=== PATIENT | female | born 1960 | race Caucasian/White ===

== ENCOUNTER 2017-07-12 19:32 | Emergency (ER) | payer MEDICARE ==
[2017-07-12] MEDS ORDERED: Ketorolac Tromethamine 30 MG/ML VIAL ONE (22:51)
== END 2017-07-12 23:08 | disposition home or self-care (01) ==
LOC: ERS 19:32
DX: M54.5 Low back pain (principal); E78.5 Hyperlipidemia, unspecified; F31.9 Bipolar disorder, unspecified; F41.9 Anxiety disorder, unspecified; F20.9 Schizophrenia, unspecified; F17.210 Nicotine dependence, cigarettes, uncomplicated; I10 Essential (primary) hypertension; Z85.3 Personal history of malignant neoplasm of breast; Z85.41 Personal history of malignant neoplasm of cervix uteri
CPT/HCPCS: 96372; J1885

== ENCOUNTER 2017-07-13 14:59 | Emergency (ER) | payer MEDICARE ==
[2017-07-13 18:10] LABS: Bilirubin Negative (Negative); Blood, Urine Moderate (Negative); Glucose, Urine (Dipstick) Negative (Negative); Ketone, Urine Negative (Negative); Nitrite Positive (Negative); Protein, Urine (Dipstick) Trace mg/dL (Neg-Trace); Urobilinogen 0.2 mg/dL (0.2-1.0)
[2017-07-13 18:12] LABS: Bacteria/HPF 4+ HPF (None Seen)
[2017-07-13 18:18] LABS: Hyaline Casts/LPF 0-3 HYALINE CAST LPF (0-3 Hyaline); RBC/HPF 0-3 HPF (0-3)
[2017-07-13 18:20] LABS: Amphetamine Not Detected (NotDetected); Methadone Not Detected (NotDetected); Methamphetamine Not Detected (NotDetected)
[2017-07-13] MEDS ORDERED: Ketorolac Tromethamine 10 MG TAB PO SCH (18:45)
== END 2017-07-13 19:00 | disposition home or self-care (01) ==
LOC: ERS 14:59
DX: N39.0 Urinary tract infection, site not specified (principal); F19.10 Other psychoactive substance abuse, uncomplicated; I10 Essential (primary) hypertension; E78.5 Hyperlipidemia, unspecified; F31.9 Bipolar disorder, unspecified; F41.9 Anxiety disorder, unspecified; F20.9 Schizophrenia, unspecified; F17.210 Nicotine dependence, cigarettes, uncomplicated
CPT/HCPCS: 80306; 81003; 81015; 99406

== ENCOUNTER 2017-07-14 16:56 | Emergency (ER) | payer MEDICARE ==
[2017-07-14] MEDS ORDERED: Ketorolac Tromethamine 30 MG/ML VIAL ONE (20:07)
== END 2017-07-14 20:40 | disposition home or self-care (01) ==
LOC: ERS 16:56
DX: M54.5 Low back pain (principal); M79.602 Pain in left arm; E78.5 Hyperlipidemia, unspecified; I10 Essential (primary) hypertension; F41.9 Anxiety disorder, unspecified; F31.9 Bipolar disorder, unspecified; F17.210 Nicotine dependence, cigarettes, uncomplicated
CPT/HCPCS: 96372; J1885

== ENCOUNTER 2017-07-15 06:46 | Emergency (ER) | payer MEDICARE | END 2017-07-15 07:03 | disposition home or self-care (01) | LOC: ERS 06:46 | DX: M25.532 Pain in left wrist (principal) | CPT/HCPCS: 99283 ==

== ENCOUNTER 2017-07-15 13:02 | Emergency (ER) | payer MEDICARE | END 2017-07-15 14:20 | disposition left against medical advice (07) | LOC: ERS 13:02 | DX: Z53.21 Procedure and treatment not carried out due to patient leaving prior to being seen by health care provider (principal) ==

== ENCOUNTER 2017-08-01 17:19 | Emergency (ER) | payer MEDICARE | END 2017-08-01 17:55 | disposition home or self-care (01) | LOC: SCSER 17:19 | DX: S62.337D Displaced fracture of neck of fifth metacarpal bone, left hand, subsequent encounter for fracture with routine healing (principal); M54.9 Dorsalgia, unspecified; M25.572 Pain in left ankle and joints of left foot; M25.571 Pain in right ankle and joints of right foot; G89.29 Other chronic pain; F20.9 Schizophrenia, unspecified; F17.210 Nicotine dependence, cigarettes, uncomplicated; F31.9 Bipolar disorder, unspecified; Z85.3 Personal history of malignant neoplasm of breast; Z85.41 Personal history of malignant neoplasm of cervix uteri; Z71.6 Tobacco abuse counseling; V89.2XXD Person injured in unspecified motor-vehicle accident, traffic, subsequent encounter | CPT/HCPCS: 99406 ==

== ENCOUNTER 2017-12-23 19:55 | Emergency (ER) | payer MEDICARE ==
[2017-12-23] MEDS ORDERED: Lorazepam 2 MG/ML VIAL ONE (20:06)
== END 2017-12-23 20:58 | disposition home or self-care (01) ==
LOC: ERS 19:55
DX: F41.9 Anxiety disorder, unspecified (principal); F31.9 Bipolar disorder, unspecified; F20.9 Schizophrenia, unspecified; F17.210 Nicotine dependence, cigarettes, uncomplicated; Z79.899 Other long term (current) drug therapy
CPT/HCPCS: 96372; J2060

== ENCOUNTER 2017-12-24 11:23 | Emergency (ER) | payer MEDICARE ==
[2017-12-24 11:58] LABS: #Eosinphils 0.1 thou/uL (0.0-0.7); #Lymphocytes 2.2 thou/uL (1.20-3.40); #Monocytes 0.4 thou/uL (0.11-0.59); #Neutrophils 4.2 thou/uL (1.40-6.50); %Basophils 0.6 % (0.0-1.0); %Eosinophils 2.1 % (0.0-10.0); %Lymphocytes 31.4 % (21.0-51.0); %Monocytes 5.3 % (0.0-10.0); %Neutrophils 60.7 % (42.0-75.0); Hemoglobin 12.8 g/dL (12.0-16.0); Mean Corpuscular HGB CONC 35.9 g/dL (32.0-36.0); Mean Corpuscular Hemoglobin 34.2 pg (27.0-31.0); Mean Corpuscular Volume 95.3 fl (81.0-99.0); Mean Platelet Volume 7.1 fL (7.4-10.4); Platelet Count 271 thou/uL (130-400); RBC Distribution Width 13.3 % (11.5-14.5); Red Blood Cell (RBC) Count 3.73 mill/uL (4.20-5.40); White Blood Cell (WBC) Count 6.9 thou/uL (4.8-10.8)
[2017-12-24 12:05] LABS: Bilirubin Negative (Negative); Blood, Urine Negative (Negative); Clarity CLEAR (Clear); Glucose, Urine (Dipstick) Negative (Negative); Leukocyte Negative (Negative); Nitrite Negative (Negative); Protein, Urine (Dipstick) Negative (Neg-Trace); Specific Gravity, Urine 1.019 (1.002-1.036); Urobilinogen 0.2 mg/dL (0.2-1.0)
[2017-12-24 12:06] LABS: Pregnancy Test - Urine (BHCG) Negative (Negative); Pregu Control Background? CLEAR/WHITE (CLR/WHITE); Pregu Control Bar Appear? YES (CONTROL BAR); Specific Gravity 1.019 (1.002-1.036)
[2017-12-24] MEDS ORDERED: Lorazepam 1 MG TAB ONE (12:11)
[2017-12-24 12:16] LABS: ALT (SGPT) 12 U/L (8-55); AST (SGOT) 11 U/L (5-34); Acetaminophen Less than 6.0 mcg/mL (10.0-30.0); Albumin 4.3 g/dL (3.5-5.0); Alcohol Less than 10 mg/dL (Less than 10); Alkaline Phosphatase 76 U/L (40-150); Anion Gap 14 mmol/L (10-20); BUN (Urea Nitrogen) 15 mg/dL (9.8-20.1); Bilirubin, Total 0.4 mg/dL (0.2-1.2); CK (CPK) 173 U/L (29-168); Calc. Creatinine Clearance 0 mL/min (70-130); Calcium 9.2 mg/dL (7.8-10.44); Carbon Dioxide 21 mmol/L (22-29); Chloride 109 mmol/L (98-107); Estimated GFR-MDRD 85; Glucose 117 mg/dL (70-105); Potassium 3.9 mmol/L (3.5-5.1); Protein, Total 7.3 g/dL (6.0-8.3); Salicylate Less than 8.0 mg/dL (15.0-30.0); Sodium 140 mmol/L (136-145)
[2017-12-24 12:19] LABS: Amphetamine Not Detected (NotDetected); Barbiturates Screen Not Detected (NotDetected); Benzodiazepine Screen Detected (NotDetected); Cocaine Metabolite Screen Not Detected (NotDetected); Medtox Control Line Valid? VALID (VALID); Medtox Reader # READER 4; Methadone Not Detected (NotDetected); Methamphetamine Not Detected (NotDetected); Opiate Screen Not Detected (NotDetected); Oxycodone Screen Not Detected (NotDetected); Phencyclidine (PCP) Not Detected (NotDetected); THC/Cannabinoid Screen Not Detected (NotDetected); Tricyclic Screen Detected (NotDetected)
[2017-12-24] MEDS ORDERED: Nicotine 14 MG PATCH TOP SCH (12:30)
[2017-12-24] MEDS ORDERED: hydrOXYzine Pamoate 25 mg Capsule ONE ×2 (13:56→23:51)
[2017-12-25] MEDS ORDERED: hydrOXYzine 25 MG TAB ONE (08:19)
[2017-12-25] MEDS ORDERED: hydrOXYzine Pamoate 25 mg Capsule ONE ×3 (13:18→19:44)
[2017-12-25] MEDS ORDERED: Nicotine 14 MG PATCH TOP SCH (14:30)
[2017-12-25] MEDS ORDERED: risperiDONE 1 MG TAB ONE (19:44)
[2017-12-25] MEDS ORDERED: traZODone HCl 50 MG TAB ONE (22:51)
[2017-12-26] MEDS ORDERED: hydrOXYzine Pamoate 25 mg Capsule ONE ×4 (07:12→21:35)
[2017-12-26] MEDS ORDERED: risperiDONE 1 MG TAB ONE (07:14)
[2017-12-27] MEDS ORDERED: Ondansetron ODT 4 MG TAB ONE ×2 (02:19→15:00)
[2017-12-27] MEDS ORDERED: hydrOXYzine Pamoate 25 mg Capsule ONE (03:37)
[2017-12-27] MEDS ORDERED: Lorazepam 1 MG TAB ONE (09:34)
--- NOTE | 2017-12-30 14:53 | EKG ---
Test Reason : Blood Pressure : / mmHG Vent. Rate : 080 BPM Atrial Rate : 080 BPM P-R Int : 150 ms QRS Dur : 074 ms QT Int : 388 ms P-R-T Axes : 088 022 093 degrees QTc Int : 447 ms Normal sinus rhythm Low voltage QRS Abnormal QRS-T angle, consider primary T wave abnormality Abnormal ECG Confirmed by AR HOANG, DAMIEN ([id number]), food editor LATRICE LOPEZ ([id number]) on 12/30/2017 2:52:24 PM Referred By: Confirmed By:DAMIEN JOYNER MD
== END 2017-12-27 15:51 ==
LOC: ERS 11:23
DX: R45.851 Suicidal ideations (principal); F31.9 Bipolar disorder, unspecified; F20.9 Schizophrenia, unspecified; F17.210 Nicotine dependence, cigarettes, uncomplicated; Z79.899 Other long term (current) drug therapy
CPT/HCPCS: 36415; 80053; 80306; 80307; 81003; 81025; 82550; 84443; 85025; 93005; Q0162; Q0177

== ENCOUNTER 2018-02-04 19:40 | Emergency (ER) | payer MEDICARE ==
[2018-02-04 20:15] LABS: Bilirubin Negative (Negative); Blood, Urine Negative (Negative); Clarity CLOUDY (Clear); Glucose, Urine (Dipstick) Negative (Negative); Leukocyte Moderate (Negative); Nitrite Negative (Negative); Protein, Urine (Dipstick) Negative (Neg-Trace); Specific Gravity, Urine 1.017 (1.002-1.036); Urobilinogen 0.2 mg/dL (0.2-1.0); pH, Urine 7.5 (5.0-9.0)
[2018-02-04 20:17] LABS: Hyaline Casts/LPF 0-3 HYALINE CAST LPF (0-3 Hyaline); Pathc Cast-AUWi Flag 0.72 (0-2.49); Pregnancy Test - Urine (BHCG) Negative (Negative); Pregu Control Background? CLEAR/WHITE (CLR/WHITE); Pregu Control Bar Appear? YES (CONTROL BAR); Specific Gravity 1.017 (1.002-1.036)
[2018-02-04 20:24] LABS: Amphetamine Not Detected (NotDetected); Barbiturates Screen Not Detected (NotDetected); Benzodiazepine Screen Detected (NotDetected); Cocaine Metabolite Screen Not Detected (NotDetected); Medtox Control Line Valid? VALID (VALID); Medtox Reader # READER 4; Methadone Not Detected (NotDetected); Methamphetamine Not Detected (NotDetected); Opiate Screen Not Detected (NotDetected); Oxycodone Screen Not Detected (NotDetected); Phencyclidine (PCP) Not Detected (NotDetected); THC/Cannabinoid Screen Not Detected (NotDetected); Tricyclic Screen Detected (NotDetected)
[2018-02-04 20:25] LABS: #Eosinphils 0.1 thou/uL (0.0-0.7); #Lymphocytes 2.5 thou/uL (1.20-3.40); #Monocytes 0.6 thou/uL (0.11-0.59); #Neutrophils 3.6 thou/uL (1.40-6.50); %Basophils 0.3 % (0.0-1.0); %Eosinophils 1.3 % (0.0-10.0); %Lymphocytes 36.7 % (21.0-51.0); %Monocytes 9.2 % (0.0-10.0); %Neutrophils 52.5 % (42.0-75.0); Mean Corpuscular HGB CONC 35.9 g/dL (32.0-36.0); Mean Corpuscular Hemoglobin 33.3 pg (27.0-31.0); Mean Corpuscular Volume 92.6 fL (78.0-98.0); Mean Platelet Volume 7.5 fL (7.4-10.4); Platelet Count 256 thou/uL (130-400); RBC Distribution Width 12.6 % (11.5-14.5); Red Blood Cell (RBC) Count 3.32 mill/uL (4.20-5.40); White Blood Cell (WBC) Count 6.8 thou/uL (4.8-10.8)
[2018-02-04 20:26] LABS: Bacteria/HPF 1+ HPF (None Seen); RBC/HPF 0-3 HPF (0-3)
[2018-02-04 20:45] LABS: ALT (SGPT) 9 U/L (8-55); AST (SGOT) 11 U/L (5-34); Albumin 3.9 g/dL (3.5-5.0); Alkaline Phosphatase 67 U/L (40-150); Anion Gap 16 mmol/L (10-20); BUN (Urea Nitrogen) 11 mg/dL (9.8-20.1); Bilirubin, Total Less than 0.2 mg/dL (0.2-1.2); Calc. Creatinine Clearance 0 mL/min (70-130); Calcium 9.2 mg/dL (7.8-10.44); Carbon Dioxide 20 mmol/L (22-29); Chloride 111 mmol/L (98-107); Estimated GFR-MDRD 74; Globulin 2.8 g/dL (2.4-3.5); Glucose 100 mg/dL (70-105); Protein, Total 6.7 g/dL (6.0-8.3); Sodium 143 mmol/L (136-145)
[2018-02-04] MEDS ORDERED: Nicotine 14 MG PATCH TOP SCH (21:00)
[2018-02-04] MEDS ORDERED: Lorazepam 1 MG TAB ONE (23:37)
[2018-02-04] MEDS ORDERED: traMADol HCl 50 MG TAB ONE (23:37)
== END 2018-02-05 00:30 | disposition home or self-care (01) ==
LOC: ERS 19:40
DX: F39 Unspecified mood [affective] disorder (principal); F31.9 Bipolar disorder, unspecified; F20.9 Schizophrenia, unspecified; F17.210 Nicotine dependence, cigarettes, uncomplicated; Z79.899 Other long term (current) drug therapy
CPT/HCPCS: 36415; 80053; 80306; 81003; 81015; 81025; 84443; 85025; 99283

== ENCOUNTER 2018-02-08 16:53 | Emergency (ER) | payer MEDICARE ==
[2018-02-08] MEDS ORDERED: traMADol HCl 50 MG TAB ONE ×2 (18:44→18:47)
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
== END 2018-02-08 18:48 | disposition home or self-care (01) ==
LOC: ERS 16:53
DX: S09.90XA Unspecified injury of head, initial encounter (principal); S00.33XA Contusion of nose, initial encounter; Z71.6 Tobacco abuse counseling; F31.9 Bipolar disorder, unspecified; F20.9 Schizophrenia, unspecified; F41.9 Anxiety disorder, unspecified; F17.210 Nicotine dependence, cigarettes, uncomplicated; Y04.0XXA Assault by unarmed brawl or fight, initial encounter
CPT/HCPCS: 70486; 99406

== ENCOUNTER 2018-02-13 15:15 | Emergency (ER) | payer MEDICARE ==
[2018-02-13] MEDS ORDERED: traMADol HCl 50 MG TAB ONE (16:37)
== END 2018-02-13 17:54 | disposition home or self-care (01) ==
LOC: ERS 15:15
DX: G89.29 Other chronic pain (principal); F31.9 Bipolar disorder, unspecified; F41.9 Anxiety disorder, unspecified; F17.210 Nicotine dependence, cigarettes, uncomplicated
CPT/HCPCS: 99283

== ENCOUNTER 2018-02-14 10:40 | Emergency (ER) | payer MEDICARE | END 2018-02-14 12:26 | disposition home or self-care (01) | LOC: ERS 10:40 | DX: G89.29 Other chronic pain (principal); M25.512 Pain in left shoulder; Z71.6 Tobacco abuse counseling; F31.9 Bipolar disorder, unspecified; F20.9 Schizophrenia, unspecified; F41.9 Anxiety disorder, unspecified; F17.210 Nicotine dependence, cigarettes, uncomplicated; Z79.899 Other long term (current) drug therapy | CPT/HCPCS: 99406 ==

== ENCOUNTER 2018-02-27 07:09 | Emergency (ER) | payer MEDICARE ==
[2018-02-27 08:56] LABS: #Eosinphils 0.1 thou/uL (0.0-0.7); #Lymphocytes 2.3 thou/uL (1.20-3.40); #Monocytes 0.5 thou/uL (0.11-0.59); #Neutrophils 5.1 thou/uL (1.40-6.50); %Basophils 0.4 % (0.0-1.0); %Eosinophils 1.8 % (0.0-10.0); %Neutrophils 62.8 % (42.0-75.0); ALT (SGPT) 9 U/L (8-55); AST (SGOT) 11 U/L (5-34); Acetaminophen Less than 6.0 mcg/mL (10.0-30.0); Albumin 4.5 g/dL (3.5-5.0); Alcohol Less than 10 mg/dL (Less than 10); Alkaline Phosphatase 81 U/L (40-150); Anion Gap 15 mmol/L (10-20); BUN (Urea Nitrogen) 12 mg/dL (9.8-20.1); Bilirubin, Total 0.2 mg/dL (0.2-1.2); Calc. Creatinine Clearance 0 mL/min (70-130); Calcium 9.5 mg/dL (7.8-10.44); Carbon Dioxide 21 mmol/L (22-29); Chloride 108 mmol/L (98-107); Estimated GFR-MDRD 87; Globulin 3.1 g/dL (2.4-3.5); Glucose 91 mg/dL (70-105); Hemoglobin 13.5 g/dL (12.0-16.0); Mean Corpuscular HGB CONC 34.3 g/dL (32.0-36.0); Mean Corpuscular Hemoglobin 31.7 pg (27.0-31.0); Mean Corpuscular Volume 92.4 fL (78.0-98.0); Mean Platelet Volume 7.8 fL (7.4-10.4); Platelet Count 273 thou/uL (130-400); Potassium 4.4 mmol/L (3.5-5.1); Protein, Total 7.6 g/dL (6.0-8.3); RBC Distribution Width 12.9 % (11.5-14.5); Red Blood Cell (RBC) Count 4.26 mill/uL (4.20-5.40); Salicylate Less than 8.0 mg/dL (15.0-30.0); Sodium 140 mmol/L (136-145)
[2018-02-27 08:59] LABS: CKMB 1.4 ng/mL (0-6.6); Troponin I Less than 0.010 ng/mL (< 0.028)
[2018-02-27 09:01] LABS: Bilirubin Negative (Negative); Blood, Urine Trace (Negative); Clarity CLOUDY (Clear); Glucose, Urine (Dipstick) Negative (Negative); Leukocyte Negative (Negative); Nitrite Negative (Negative); Protein, Urine (Dipstick) Negative (Neg-Trace); Specific Gravity, Urine 1.015 (1.002-1.036); Urobilinogen 0.2 mg/dL (0.2-1.0)
[2018-02-27 09:02] LABS: Bacteria/HPF 1+ HPF (None Seen); Hyaline Casts/LPF 0-3 HYALINE CAST LPF (0-3 Hyaline); Pathc Cast-AUWi Flag 0.72 (0-2.49)
== END 2018-02-27 10:03 | disposition home or self-care (01) ==
LOC: ERS 07:09
DX: F41.9 Anxiety disorder, unspecified (principal); N39.0 Urinary tract infection, site not specified; F31.9 Bipolar disorder, unspecified; F20.9 Schizophrenia, unspecified; F17.210 Nicotine dependence, cigarettes, uncomplicated
CPT/HCPCS: 36415; 80053; 80164; 80307; 81003; 81015; 82553; 84443; 84484; 85025; 93005

== ENCOUNTER 2018-06-08 17:39 | Emergency (ER) | payer MEDICARE ==
[2018-06-08 19:01] LABS: #Eosinphils 0.1 thou/uL (0.0-0.7); #Lymphocytes 1.5 thou/uL (1.20-3.40); #Monocytes 0.6 thou/uL (0.11-0.59); #Neutrophils 4.2 thou/uL (1.40-6.50); %Basophils 0.7 % (0.0-1.0); %Eosinophils 1.3 % (0.0-10.0); %Lymphocytes 23.5 % (21.0-51.0); %Monocytes 8.5 % (0.0-10.0); Hemoglobin 12.1 g/dL (12.0-16.0); Mean Corpuscular HGB CONC 33.5 g/dL (32.0-36.0); Mean Corpuscular Hemoglobin 31.2 pg (27.0-31.0); Mean Corpuscular Volume 93.3 fL (78.0-98.0); Mean Platelet Volume 8.6 fL (7.4-10.4); Platelet Count 230 thou/uL (130-400); Red Blood Cell (RBC) Count 3.87 mill/uL (4.20-5.40); White Blood Cell (WBC) Count 6.4 thou/uL (4.8-10.8)
[2018-06-08 19:22] LABS: ALT (SGPT) 13 U/L (8-55); AST (SGOT) 15 U/L (5-34); Acetaminophen Less than 6.0 mcg/mL (10.0-30.0); Alcohol Less than 10 mg/dL (Less than 10); Alkaline Phosphatase 55 U/L (40-150); Anion Gap 16 mmol/L (10-20); BUN (Urea Nitrogen) 20 mg/dL (9.8-20.1); Bilirubin, Total 0.2 mg/dL (0.2-1.2); Calc. Creatinine Clearance 0 mL/min (70-130); Calcium 9.2 mg/dL (7.8-10.44); Carbon Dioxide 21 mmol/L (22-29); Chloride 111 mmol/L (98-107); Estimated GFR-MDRD Greater than 90; Globulin 3.2 g/dL (2.4-3.5); Glucose 101 mg/dL (70-105); Potassium 4.5 mmol/L (3.5-5.1); Protein, Total 7.2 g/dL (6.0-8.3); Salicylate Less than 8.0 mg/dL (15.0-30.0); Sodium 143 mmol/L (136-145)
[2018-06-08 19:23] LABS: Alcohol Less than 10 mg/dL (Less than 10); CK (CPK) 186 U/L (29-168)
[2018-06-08 21:30] LABS: Amphetamine Not Detected (NotDetected); Barbiturates Screen Not Detected (NotDetected); Benzodiazepine Screen Not Detected (NotDetected); Cocaine Metabolite Screen Not Detected (NotDetected); Medtox Control Line Valid? VALID (VALID); Medtox Reader # READER 1; Methadone Not Detected (NotDetected); Methamphetamine Not Detected (NotDetected); Opiate Screen Not Detected (NotDetected); Oxycodone Screen Not Detected (NotDetected); Phencyclidine (PCP) Not Detected (NotDetected); THC/Cannabinoid Screen Not Detected (NotDetected); Tricyclic Screen Not Detected (NotDetected)
[2018-06-08] MEDS ORDERED: Lorazepam 1 MG TAB ONE (21:51)
[2018-06-08] MEDS ORDERED: busPIRone HCl 5 MG TAB PO SCH (22:45)
[2018-06-08] MEDS ORDERED: OLANZapine 5 MG TAB PO SCH (22:45)
[2018-06-10] MEDS ORDERED: busPIRone HCl 5 MG TAB PO SCH ×2 (09:45→19:15)
[2018-06-10] MEDS ORDERED: OLANZapine 5 MG TAB PO SCH (19:15)
[2018-06-11] MEDS ORDERED: busPIRone HCl 5 MG TAB PO SCH ×3 (08:45→21:00)
[2018-06-11] MEDS ORDERED: OLANZapine 5 MG TAB PO SCH (08:45)
[2018-06-11] MEDS ORDERED: traZODone HCl 50 MG TAB PO PRN (22:15)
[2018-06-12] MEDS ORDERED: busPIRone HCl 5 MG TAB PO SCH (09:00)
[2018-06-12] MEDS ORDERED: OLANZapine 5 MG TAB PO SCH (21:00)
== END 2018-06-14 12:40 | disposition home or self-care (01) ==
LOC: ERS 17:39
DX: R45.851 Suicidal ideations (principal); F31.9 Bipolar disorder, unspecified; F41.9 Anxiety disorder, unspecified; F17.210 Nicotine dependence, cigarettes, uncomplicated; Z79.899 Other long term (current) drug therapy
CPT/HCPCS: 36415; 80053; 80306; 80307; 82550; 84443; 85025; 93005; 94760

== ENCOUNTER 2018-06-18 15:02 | Emergency (ER) | payer MEDICARE ==
[2018-06-18 15:32] LABS: #Basophils 0.1 thou/uL (0.0-0.2); #Eosinphils 0.1 thou/uL (0.0-0.7); #Lymphocytes 2.1 thou/uL (1.20-3.40); #Monocytes 0.5 thou/uL (0.11-0.59); #Neutrophils 4.5 thou/uL (1.40-6.50); %Basophils 1.1 % (0.0-1.0); %Eosinophils 1.7 % (0.0-10.0); %Monocytes 6.6 % (0.0-10.0); %Neutrophils 61.5 % (42.0-75.0); Hemoglobin 13.3 g/dL (12.0-16.0); Mean Corpuscular HGB CONC 35.3 g/dL (32.0-36.0); Mean Corpuscular Hemoglobin 32.1 pg (27.0-31.0); Mean Corpuscular Volume 90.9 fL (78.0-98.0); Mean Platelet Volume 8.8 fL (7.4-10.4); Platelet Count 251 thou/uL (130-400); RBC Distribution Width 14.4 % (11.5-14.5); Red Blood Cell (RBC) Count 4.15 mill/uL (4.20-5.40); White Blood Cell (WBC) Count 7.3 thou/uL (4.8-10.8)
[2018-06-18 15:54] LABS: Acetaminophen Less than 6.0 mcg/mL (10.0-30.0); Alcohol Less than 10 mg/dL (Less than 10); Salicylate Less than 8.0 mg/dL (15.0-30.0)
[2018-06-18 15:55] LABS: ALT (SGPT) 35 U/L (8-55); AST (SGOT) 30 U/L (5-34); Albumin 4.3 g/dL (3.5-5.0); Alkaline Phosphatase 68 U/L (40-150); Anion Gap 16 mmol/L (10-20); BUN (Urea Nitrogen) 13 mg/dL (9.8-20.1); Bilirubin, Total 0.3 mg/dL (0.2-1.2); Calc. Creatinine Clearance 0 mL/min (70-130); Calcium 9.6 mg/dL (7.8-10.44); Carbon Dioxide 20 mmol/L (22-29); Chloride 107 mmol/L (98-107); Estimated GFR-MDRD 88; Globulin 3.4 g/dL (2.4-3.5); Glucose 94 mg/dL (70-105); Protein, Total 7.7 g/dL (6.0-8.3); Sodium 139 mmol/L (136-145)
[2018-06-18] MEDS ORDERED: Diazepam 5 MG TAB ONE (15:57)
[2018-06-18 16:53] LABS: Bilirubin Negative (Negative); Blood, Urine Trace (Negative); Clarity CLEAR (Clear); Glucose, Urine (Dipstick) Negative (Negative); Leukocyte Negative (Negative); Nitrite Negative (Negative); Protein, Urine (Dipstick) Negative (Neg-Trace); Specific Gravity, Urine 1.022 (1.002-1.036); Urobilinogen 0.2 mg/dL (0.2-1.0)
[2018-06-18 16:56] LABS: Bacteria/HPF None Seen HPF (None Seen); RBC/HPF 0-3 HPF (0-3); Squamous Epithelial 0-3 HPF (0-3)
[2018-06-18 17:00] LABS: Hyaline Casts/LPF 0-3 HYALINE CAST LPF (0-3 Hyaline); Manual Microscopic Reviewed? No Path Casts Seen
[2018-06-18 17:04] LABS: Amphetamine Not Detected (NotDetected); Barbiturates Screen Not Detected (NotDetected); Benzodiazepine Screen Detected (NotDetected); Cocaine Metabolite Screen Not Detected (NotDetected); Medtox Control Line Valid? VALID (VALID); Medtox Reader # READER 1; Methadone Not Detected (NotDetected); Methamphetamine Not Detected (NotDetected); Opiate Screen Not Detected (NotDetected); Oxycodone Screen Not Detected (NotDetected); Phencyclidine (PCP) Not Detected (NotDetected); THC/Cannabinoid Screen Not Detected (NotDetected); Tricyclic Screen Not Detected (NotDetected)
[2018-06-18] MEDS ORDERED: Cephalexin 250 MG CAP ONE (17:37)
[2018-06-19] MEDS ORDERED: hydrOXYzine Pamoate 25 mg Capsule PO PRN (07:45)
[2018-06-19] MEDS ORDERED: Ziprasidone 20 MG CAP PO SCH (07:45)
[2018-06-19] MEDS ORDERED: Nicotine 14 MG PATCH TD SCH (07:45)
[2018-06-19] MEDS ORDERED: traZODone HCl 50 MG TAB PO PRN (07:51)
[2018-06-19] MEDS ORDERED: risperiDONE 1 MG TAB PO SCH (08:00)
[2018-06-19] MEDS ORDERED: OLANZapine 5 MG TAB PO SCH (08:00)
[2018-06-19] MEDS ORDERED: Cephalexin 250 MG CAP ONE ×3 (08:22→21:12)
[2018-06-19] MEDS ORDERED: busPIRone HCl 10 MG TAB PO SCH (09:00)
[2018-06-19] MEDS ORDERED: Lorazepam 2 MG/ML VIAL ONE (13:38)
[2018-06-19] MEDS ORDERED: Lorazepam 1 MG TAB ONE (13:39)
[2018-06-19] MEDS ORDERED: Cephalexin 250 MG CAP PO SCH (15:00)
[2018-06-19] MEDS ORDERED: busPIRone HCl 5 MG TAB PO SCH (21:00)
[2018-06-19] MEDS ORDERED: Divalproex Sodium DR 500 MG TAB PO SCH (21:00)
[2018-06-23] MEDS ORDERED: hydrOXYzine Pamoate 25 mg Capsule PO SCH (22:15)
--- NOTE | 2018-06-24 16:17 | EKG ---
Test Reason : ER INDICATION Blood Pressure : / mmHG Vent. Rate : 063 BPM Atrial Rate : 063 BPM P-R Int : 144 ms QRS Dur : 082 ms QT Int : 396 ms P-R-T Axes : 045 -17 073 degrees QTc Int : 405 ms Poor data quality, interpretation may be adversely affected Normal sinus rhythm Normal ECG Confirmed by KEARA HUERTA ([id number]), newspaper photo editor LATRICE LOPEZ ([id number]) on 06/24/2018 4:17:42 PM Referred By: Confirmed By:KEARA HUERTA
== END 2018-06-25 01:22 ==
LOC: ERS 15:02
DX: F32.9 Major depressive disorder, single episode, unspecified (principal); F20.9 Schizophrenia, unspecified; Z79.899 Other long term (current) drug therapy
CPT/HCPCS: 36415; 80053; 80306; 80307; 81003; 81015; 84443; 85025; 87086; 93005; J2060; Q0177

== ENCOUNTER 2019-05-01 15:47 | Emergency (ER) | payer MEDICARE ==
[2019-05-01 17:05] LABS: #Basophils 0.1 thou/uL (0.0-0.2); #Eosinphils 0.2 thou/uL (0.0-0.7); #Lymphocytes 3.1 thou/uL (1.20-3.40); #Monocytes 0.7 thou/uL (0.11-0.59); #Neutrophils 4.3 thou/uL (1.40-6.50); %Basophils 0.6 % (0.0-1.0); %Eosinophils 2.9 % (0.0-10.0); %Lymphocytes 36.7 % (21.0-51.0); %Monocytes 8.7 % (0.0-10.0); %Neutrophils 51.2 % (42.0-75.0); Hemoglobin 12.3 g/dL (12.0-16.0); Mean Corpuscular HGB CONC 35.1 g/dL (32.0-36.0); Mean Corpuscular Hemoglobin 31.6 pg (27.0-31.0); Mean Corpuscular Volume 90.1 fL (78.0-98.0); Mean Platelet Volume 8.6 fL (7.4-10.4); Platelet Count 254 thou/uL (130-400); RBC Distribution Width 14.4 % (11.5-14.5); Red Blood Cell (RBC) Count 3.89 mill/uL (4.20-5.40); White Blood Cell (WBC) Count 8.3 thou/uL (4.8-10.8)
[2019-05-01 17:17] LABS: Bilirubin Negative (Negative); Blood, Urine Moderate (Negative); Glucose, Urine (Dipstick) Negative (Negative); Leukocyte Small (Negative); Nitrite Negative (Negative); Protein, Urine (Dipstick) Negative (Neg-Trace); Urobilinogen 0.2 mg/dL (Less than 2)
[2019-05-01 17:20] LABS: Clarity Hazy (Clear)
[2019-05-01 17:21] LABS: Pregnancy Test - Urine (BHCG) Negative (Negative); Pregu Control Background? CLEAR/WHITE (CLR/WHITE); Pregu Control Bar Appear? YES (CONTROL BAR); Specific Gravity 1.025 (1.002-1.036)
[2019-05-01 17:27] LABS: Amphetamine Not Detected (NotDetected); Barbiturates Screen Not Detected (NotDetected); Benzodiazepine Screen Not Detected (NotDetected); Cocaine Metabolite Screen Not Detected (NotDetected); Medtox Reader # READER 4; Methadone Not Detected (NotDetected); Methamphetamine Not Detected (NotDetected); Opiate Screen Not Detected (NotDetected); Phencyclidine (PCP) Not Detected (NotDetected); THC/Cannabinoid Screen Not Detected (NotDetected); Tricyclic Screen Not Detected (NotDetected)
[2019-05-01 17:28] LABS: Medtox Control Line Valid? VALID (VALID); Oxycodone Screen Not Detected (NotDetected)
[2019-05-01 17:30] LABS: Acetaminophen Less than 6.0 mcg/mL (10.0-30.0); Alcohol Less than 10 mg/dL (Less than 10); Salicylate Less than 8.0 mg/dL (15.0-30.0)
[2019-05-01 17:32] LABS: Bacteria/HPF 1+ HPF (None Seen)
[2019-05-01 17:33] LABS: ALT (SGPT) 11 U/L (8-55); AST (SGOT) 10 U/L (5-34); Albumin 4.2 g/dL (3.5-5.0); Alkaline Phosphatase 74 U/L (40-110); Anion Gap 14 mmol/L (10-20); BUN (Urea Nitrogen) 22 mg/dL (9.8-20.1); Bilirubin, Total 0.2 mg/dL (0.2-1.2); CK (CPK) 74 U/L (29-168); Calc. Creatinine Clearance 0 mL/min (70-130); Calcium 9.6 mg/dL (7.8-10.44); Carbon Dioxide 23 mmol/L (22-29); Chloride 108 mmol/L (98-107); Estimated GFR-MDRD 85; Globulin 2.9 g/dL (2.4-3.5); Glucose 95 mg/dL (70-105); Lipase 40 U/L (8-78); Potassium 4.4 mmol/L (3.5-5.1); Protein, Total 7.1 g/dL (6.0-8.3); Sodium 141 mmol/L (136-145)
== END 2019-05-01 20:08 | disposition home or self-care (01) ==
LOC: ERS 15:47
DX: F31.9 Bipolar disorder, unspecified (principal); F20.9 Schizophrenia, unspecified; F17.210 Nicotine dependence, cigarettes, uncomplicated; Z79.899 Other long term (current) drug therapy
CPT/HCPCS: 36415; 80053; 80306; 80307; 81003; 81015; 81025; 82550; 83690; 84443; 85025; 99285

== ENCOUNTER 2019-05-04 19:50 | Emergency (ER) | payer MEDICARE ==
[2019-05-04] MEDS ORDERED: traMADol HCl 50 MG TAB ONE (22:25)
[2019-05-04] MEDS ORDERED: Ibuprofen 200 MG TAB ONE (22:26)
[2019-05-04 22:38] LABS: #Basophils 0.1 thou/uL (0.0-0.2); #Eosinphils 0.4 thou/uL (0.0-0.7); #Monocytes 0.7 thou/uL (0.11-0.59); #Neutrophils 5.1 thou/uL (1.40-6.50); %Basophils 0.5 % (0.0-1.0); %Eosinophils 4.1 % (0.0-10.0); %Lymphocytes 32.5 % (21.0-51.0); %Monocytes 7.3 % (0.0-10.0); %Neutrophils 55.7 % (42.0-75.0); Hemoglobin 12.2 g/dL (12.0-16.0); Mean Corpuscular Hemoglobin 31.2 pg (27.0-31.0); Mean Corpuscular Volume 86.7 fL (78.0-98.0); Mean Platelet Volume 8.6 fL (7.4-10.4); Platelet Count 262 thou/uL (130-400); RBC Distribution Width 14.3 % (11.5-14.5); Red Blood Cell (RBC) Count 3.92 mill/uL (4.20-5.40); White Blood Cell (WBC) Count 9.2 thou/uL (4.8-10.8)
[2019-05-04 22:45] LABS: BHCG - Serum Negative (NEGATIVE); Pregs Control Background? CLEAR/WHITE (CLR/WHITE); Pregs Control Bar Appear? YES (CONTROL BAR)
[2019-05-04 22:49] LABS: ALT (SGPT) 14 U/L (8-55); AST (SGOT) 12 U/L (5-34); Acetaminophen Less than 6.0 mcg/mL (10.0-30.0); Albumin 3.9 g/dL (3.5-5.0); Alcohol Less than 10 mg/dL (Less than 10); Alkaline Phosphatase 70 U/L (40-110); Anion Gap 14 mmol/L (10-20); BUN (Urea Nitrogen) 23 mg/dL (9.8-20.1); Bilirubin, Total Less than 0.2 mg/dL (0.2-1.2); CK (CPK) 210 U/L (29-168); Calc. Creatinine Clearance 0 mL/min (70-130); Calcium 9.2 mg/dL (7.8-10.44); Carbon Dioxide 21 mmol/L (22-29); Chloride 109 mmol/L (98-107); Estimated GFR-MDRD Greater than 90; Globulin 2.9 g/dL (2.4-3.5); Glucose 130 mg/dL (70-105); Potassium 3.3 mmol/L (3.5-5.1); Protein, Total 6.8 g/dL (6.0-8.3); Salicylate Less than 8.0 mg/dL (15.0-30.0); Sodium 141 mmol/L (136-145)
== END 2019-05-05 01:18 | disposition home or self-care (01) ==
LOC: ERS 19:50
DX: R10.9 Unspecified abdominal pain (principal); F31.9 Bipolar disorder, unspecified; F41.9 Anxiety disorder, unspecified; F20.9 Schizophrenia, unspecified; F17.210 Nicotine dependence, cigarettes, uncomplicated; Z79.891 Long term (current) use of opiate analgesic; Z79.899 Other long term (current) drug therapy
CPT/HCPCS: 80053; 80307; 82550; 84443; 84703; 85025; 99285

== ENCOUNTER 2019-05-05 17:20 | Emergency (ER) | payer MEDICARE ==
[2019-05-05] MEDS ORDERED: Dicyclomine 20 MG TAB ONE (17:39)
== END 2019-05-05 18:08 | disposition home or self-care (01) ==
LOC: ERS 17:20
DX: G89.29 Other chronic pain (principal); R10.30 Lower abdominal pain, unspecified; F31.9 Bipolar disorder, unspecified; F20.9 Schizophrenia, unspecified; F41.9 Anxiety disorder, unspecified; F17.210 Nicotine dependence, cigarettes, uncomplicated; Z79.899 Other long term (current) drug therapy
CPT/HCPCS: 99283

== ENCOUNTER 2019-06-08 15:18 | Emergency (ER) | payer MEDICARE | END 2019-06-08 16:22 | disposition home or self-care (01) | LOC: ERS 15:18 | DX: G89.29 Other chronic pain (principal); M54.9 Dorsalgia, unspecified; F31.9 Bipolar disorder, unspecified; F41.9 Anxiety disorder, unspecified; F20.9 Schizophrenia, unspecified; F17.210 Nicotine dependence, cigarettes, uncomplicated | CPT/HCPCS: 99283 ==